=== PATIENT | female | born 1995 | race Caucasian/White ===

== ENCOUNTER 2021-09-15 15:12 | Outpatient (CLI) | payer BC | END 2021-09-15 15:13 | disposition home or self-care (01) | LOC: CSHULT 15:12 | PROVIDERS: ATTEND Otolaryngology Plastic Surgery within the Head & Neck | DX: E04.1 Nontoxic single thyroid nodule (principal) | CPT/HCPCS: 76536 ==

== ENCOUNTER 2021-11-02 09:21 | Outpatient (CLI) | payer BC | END 2021-11-02 09:22 | disposition home or self-care (01) | LOC: CSHULT 09:21 | PROVIDERS: ATTEND Internal Medicine | DX: R10.11 Right upper quadrant pain (principal); R11.2 Nausea with vomiting, unspecified; K52.9 Noninfective gastroenteritis and colitis, unspecified | CPT/HCPCS: 76700 ==